=== PATIENT | female | born 1970 ===

== ENCOUNTER 2016-09-25 22:29 | Emergency (ER) | payer BC, OTHER ==
[~2016-09-25] VITALS: Ht 162.6 cm; Wt 87.3 kg
[2016-09-25 22:29] VITALS: Ht 162.6 cm; Wt 87.3 kg
[~2016-09-25 22:29] MED LIST: ALBU18HF2 ORAL INH; AMPH30TA3 PO
--- OUTSIDE RECORDS SUMMARY | 2016-09-25 22:33 | XMS REPORT | Referral Summary ---
Author Author [facility], Family Medicine Organization [facility] Address Unknown Phone Unavailable Care Team Providers Care It Analyst Name Role Phone Haja Baez Primary Care Physician [phone] Encounter VC Date(s): 02/22/15 - 02/22/15 [facility] [place], Family [address] [place], [place] [address] Discharge Diagnosis: Fatigue Discharge Diagnosis: Adult ADHD Discharge Diagnosis: Mild intermittent asthma, uncomplicated Discharge Diagnosis: Tobacco user Discharge Diagnosis: Obstructive sleep apnea Discharge Disposition: 01-Home or Self Care Attending Physician: Antonino Baez MD Admitting Physician: Antonino Baez MD Vital Signs Most recent to 1 oldest [Reference Range]: Temperature Tympanic 35.6 degC [36.6-38.1 degC] *LOW* (02/22/15 9:27 AM) Peripheral Pulse 64 bpm Rate [60-100 bpm] (02/22/15 9:27 AM) Blood Pressure 132/82 mmHg [90-140/60-90 mmHg] (02/22/15 9:27 AM) Problem List Condition Effective Dates Status Health Status Informant Obesity(Confirmed) Active patient Tobacco Active patient user(Confirmed) Allergies, Adverse Reactions, Alerts Substance Reaction Severity Status amoxicillin Active ibuprofen Active Nuts Active Medications Adderall 10 mg oral tablet See Instructions, take 1 & 1/2 tab BID, 1-1/2 tabs Oral BID, # 90 tabs, 0 Refill (s) Start Date: 02/22/15 Status: Ordered B 100 Complex oral tablet 1 tabs, Oral, Daily, # 100 tabs, 0 Refill(s) Start Date: 01/18/15 Status: Ordered echinacea 0 Refill(s) Start Date: 01/18/15 Status: Ordered EPINEPHrine 0.3 mg injectable kit See Instructions, IntraMuscular Once, # 1 Each, 0 Refill(s), Pharmacy: [facility] #[id number], IntraMuscular Once Start Date: 01/18/15 Stop Date: 01/19/16 Status: Ordered Fish Oil Oral, 0 Refill(s) Start Date: 01/18/15 Status: Ordered Melatonin 3 mg oral tablet 3 mg 1 tabs, Oral, Bedtime (once a day), as needed for insomnia, # 60 tabs, 0 Refill(s) Start Date: 01/18/15 Status: Ordered multivitamin Daily, 0 Refill(s) Start Date: 01/18/15 Status: Ordered Mohan's wort 0 Refill(s) Start Date: 01/18/15 Status: Ordered Ventolin HFA 90 mcg/inh inhalation aerosol 180 mcg 2 puffs, Inhalation, QID, as needed for wheezing, # 1 Each, 0 Refill(s) , Pharmacy: [facility] #[id number], 2 puffs Inhalation QID,PRN:as needed for wheezing Start Date: 01/18/15 Status: Ordered Results Hematology Most recent to 1 oldest [Reference Range]: WBC [4.8-10.8 8.0 10*3/uL 10*3/uL] (02/22/15 10:35 AM) RBC [4.00-5.20] 4.33 (02/22/15 10:35 AM) Hgb [12.0-16.0 13.1 gm/dL gm/dL] (02/22/15 10:35 AM) Hct [37.0-47.0 %] 39.0 % (02/22/15 10:35 AM) MCV [82.0-99.0 fL] 90.1 fL (02/22/15 10:35 AM) MCH [27.0-32.0 pg] 30.3 pg (02/22/15 10:35 AM) MCHC [32.0-36.0 33.6 gm/dL gm/dL] (02/22/15 10:35 AM) RDW [11.5-14.5 %] 13.1 % (02/22/15 10:35 AM) Platelet [150-400 253 10*3/uL 10*3/uL] (02/22/15 10:35 AM) MPV [8.8-14.8 fL] 12.4 fL (02/22/15 10:35 AM) Immature 0.3 % Granulocytes (02/22/15 10:35 AM) [0.0-1.0 %] Neutrophils [51-75 63 % %] (02/22/15 10:35 AM) Lymphocytes [20-46 26 % %] (02/22/15 10:35 AM) Monocytes [4-11 %] 7 % (02/22/15 10:35 AM) Eosinophils [0-4 %] 3 % (02/22/15 10:35 AM) Basophils [0-2 %] 1 % (02/22/15 10:35 AM) Neutro Absolute 4.98 10*3 [1.90-7.00 10*3] (02/22/15 10:35 AM) Lymph Absolute 2.10 10*3 [0.80-3.30 10*3] (02/22/15 10:35 AM) Hubbard Absolute 0.55 10*3 [0.30-1.00 10*3] (02/22/15 10:35 AM) Eos Absolute 0.26 10*3 [0.00-0.50 10*3] (02/22/15 10:35 AM) Baso Absolute 0.04 10*3 [0.00-0.20 10*3] (02/22/15 10:35 AM) Chemistry Most recent to 1 oldest [Reference Range]: TSH with Reflex Free 1.03 T4 [0.35-4.94] (02/22/15 10:35 AM) Immunizations No data available for this section Procedures Procedure Date Related Diagnosis Body Site Collection of venous blood by venipuncture 02/22/15 Hysterectomy1 Miscellaneous2 1Still has both ovaries. 2Foot surg x2. Social History Social History Type Response Smoking Status Current every day smoker; Type: Cigarettes; Tobacco use per day: Pack; Number of years: 12 Assessment and Plan Extracted from: Title: Office Visit Note Author: Antonino Baez MD Date: 02/22/15 Assessment/Plan Adult ADHD Fatigue Mild intermittent asthma, uncomplicated Obstructive sleep apnea Tobacco user Orders: dextroamphetamine-amphetamine, See Instructions, take 1 & 1/2 tab BID , 1-1/2 tabs Oral BID, # 90 tabs, 0 Refill(s) We discussed asthma management. I recommended pulmonary function tests but she wants to defer that for now. We discussed smoking cessation and she plans to try to completely quit. I proved a one-month supply of Adderall. We will try once again to arrange consultation with sleep medicine and with psychiatry. We also tried once again to request old records. I'll up again in one more month. His evaluation of her fatigue include TSH and CBC and testing.
--- OUTSIDE RECORDS SUMMARY | 2016-09-25 22:33 | XMS REPORT | Referral Summary ---
Author Author [facility], Family [facility] Organization [facility] Address Unknown Phone Unavailable Care Team Providers Care Piano Mechanic Name Role Phone OlimpiamollyLouie Primary Care Physician [phone] Encounter Date(s): 01/18/15 - 01/18/15 [facility] [address] [place] [address]- Discharge Diagnosis: Adult ADHD Discharge Diagnosis: Allergic rhinitis Discharge Diagnosis: Tobacco user Discharge Diagnosis: Nut allergy Discharge Diagnosis: Sleep apnea Discharge Diagnosis: Asthma Discharge Disposition: 01-Home or Self Care Attending Physician: Antonino Baez MD Admitting Physician: Antonino Baez MD Vital Signs Most recent to 1 oldest [Reference Range]: Temperature Tympanic 36.7 degC [36.6-38.1 degC] (01/18/15 10:58 AM) Peripheral Pulse 60 bpm Rate [60-100 bpm] (01/18/15 10:58 AM) Blood Pressure 119/78 mmHg [90-140/60-90 mmHg] (01/18/15 10:58 AM) Problem List Condition Effective Dates Status Health Status Informant Adult Active ADHD(Confirmed) Depression(Confirmed Active ) Endometriosis(Confir Active med) S/p Active hysterectomy(Confirm ed) Herpes genitalis in Active women(Confirmed) Obesity(Confirmed) Active patient Apnea, Active sleep(Confirmed) Tobacco Active patient user(Confirmed) Allergies, Adverse Reactions, [...] Once, # 1 Each, 0 Refill(s), Pharmacy: [facility] #[id number], IntraMuscular Once Start Date: 01/18/15 Stop Date: [...] # 1 Each, 0 Refill(s) , Pharmacy: [facility] #[id number], 2 puffs Inhalation QID,PRN:as needed for wheezing Start Date: 01/18/15 Status: Ordered Results No data available for this section Immunizations No data available for this section Procedures Procedure Date Related Diagnosis Body Site Hysterectomy1 Miscellaneous2 1Still has both ovaries. 2Foot surg x2. Social History Social History Type Response Smoking Status Current every day smoker; Type: Cigarettes; Tobacco use per day: Pack; Number of years: 12 Assessment and Plan Extracted from: Title: Office Visit Note Author: Antonino Baez MD Date: 01/18/15 Assessment/Plan Adult ADHD Allergic rhinitis Asthma Nut allergy Sleep apnea Tobacco user Orders: albuterol, 180 mcg 2 puffs, Inhalation, QID, as needed for wheezing, # 1 Each, 0 Refill(s), Pharmacy: [facility] #[id number], 2 puffs Inhalation QID,PRN:as needed for wheezing EPINEPHrine, See Instructions, IntraMuscular Once, # 1 Each, 0 Refill(s), Pharmacy: [facility] #[id number], IntraMuscular Once Old records requested. I'm not ready to prescribe Adderall until I have a chance to review those. Alternatively I offered consultation at [facility] for evaluation of a told ADHD and that was what she preferred. She also needs a consultation with sleep medicine. I did suggest nasal steroid spray such as Flonase or Nasacort combined with antihistamine for her nasal allergy symptoms. Refills provided for her EpiPen and albuterol inhaler. Follow-up one month or sooner if needed.
--- OUTSIDE RECORDS SUMMARY | 2016-09-25 22:33 | XMS REPORT | Referral Summary ---
Author Author [facility], Family Medicine Organization [facility] Address Unknown Phone Unavailable Care Team Providers Care Senior Ios Software Engineer Name Role Phone Louie Parks Primary Care Physician [phone] Encounter VC Date(s): 07/05/15 - 07/05/15 [facility] [place], Family [address] [place] [address]- Discharge Disposition: 01-Home or Self Care Attending Physician: Edison Parks MD Admitting Physician: Edison Parks MD Vital Signs Most recent to 1 oldest [Reference Range]: Blood Pressure 130/90 mmHg [90-140/60-90 mmHg] (07/05/15 10:29 AM) Problem List Condition Effective Dates Status [...] Once, # 1 Each, 0 Refill(s), Pharmacy: [facility] #[id number], IntraMuscular Once Start Date: 01/18/15 Stop Date: [...] # 1 Each, 0 Refill(s) , Pharmacy: [facility] #[id number], 2 puffs Inhalation QID,PRN:as needed for wheezing [...] 12 Assessment and Plan Extracted from: Title: Ambulatory Patient Education Author: Edison Parks MD Date: Family Medicine Depression Depression refers to feeling sad, low, down in the dumps, blue, gloomy, or empty. In general, there are two kinds of depression: 1.Normal sadness or normal grief. This kind of depression is one that we all feel from time to time after upsetting life experiences, such as the loss of a job or the ending of a relationship. This kind of depression is considered normal, is short lived, and resolves within a few days to 2 weeks. Depression experienced after the loss of a loved one (bereavement) often lasts longer than 2 weeks but normally gets better with time. 2.Clinical depression. This kind of depression lasts longer than normal sadness or normal grief or interferes with your ability to function at home, at work, and in school. It also interferes with your personal relationships. It affects almost every aspect of your life. Clinical depression is an illness. Symptoms of depression can also be caused by conditions other than those mentioned above, such as: Physical illness. Some physical illnesses, including underactive thyroid gland (hypothyroidism), severe anemia, specific types of cancer, diabetes, uncontrolled seizures, heart and lung problems, strokes, and chronic pain are commonly associated with symptoms of depression. Side effects of some prescription medicine. In some people, certain types of medicine can cause symptoms of depression. Substance abuse. Abuse of alcohol and illicit drugs can cause symptoms of depression. SYMPTOMS Symptoms of normal sadness and normal grief include the following: Feeling sad or crying for short periods of time. Not caring about anything (apathy). Difficulty sleeping or sleeping too much. No longer able to enjoy the things you used to enjoy. Desire to be by oneself all the time (social isolation). Lack of energy or motivation. Difficulty concentrating or remembering. Change in appetite or weight. Restlessness or agitation. Symptoms of clinical depression include the same symptoms of normal sadness or normal grief and also the following symptoms: Feeling sad or crying all the time. Feelings of guilt or worthlessness. Feelings of hopelessness or helplessness. Thoughts of suicide or the desire to harm yourself (suicidal ideation). Loss of touch with reality (psychotic symptoms). Seeing or hearing things that are not real (hallucinations) or having false beliefs about your life or the people around you (delusions and paranoia). DIAGNOSIS The diagnosis of clinical depression is usually based on how bad the symptoms are and how long they have lasted. Your health care provider will also ask you questions about your medical history and substance use to find out if physical illness, use of prescription medicine, or substance abuse is causing your depression. Your health care provider may also order blood tests. TREATMENT Often, normal sadness and normal grief do not require treatment. However, sometimes antidepressant medicine is given for bereavement to ease the depressive symptoms until they resolve. The treatment for clinical depression depends on how bad the symptoms are but often includes antidepressant medicine, counseling with a mental health professional, or both. Your health care provider will help to determine what treatment is best for you. Depression caused by physical illness usually goes away with appropriate medical treatment of the illness. If prescription medicine is causing depression , talk with your health care provider about stopping the medicine, decreasing the dose, or changing to another medicine. Depression caused by the abuse of alcohol or illicit drugs goes away when you stop using these substances. Some adults need professional help in order to stop drinking or using drugs. SEEK IMMEDIATE MEDICAL CARE IF: You have thoughts about hurting yourself or others. You lose touch with reality (have psychotic symptoms). You are taking medicine for depression and have a serious side effect. FOR MORE INFORMATION National [place] on Mental Illness: www.jose.org National [place] of Mental Health: www.nimh.nih.gov This information is not intended to replace advice given to you by your health care provider. Make sure you discuss any questions you have with your health care provider. Document Released: 04/24/2001 Document Revised: 09/11/2014 Document Reviewed: ExitCare Patient Information 2015 [place] [employer] [facility]. No follow up information was provided. Extracted from: Title: Office Visit Note Author: Edison Parks MD Date: 07/05/15 Assessment/Plan Adult ADHD Seeing PV. [facility] notes from 05/2015 reviewed.ADHD meds are being given byPV. Apnea, sleep referral given for consult to Sleep Medicine. Depression This issue was reviewed, appears stable, and current therapy continued except as mentioned. Appropriate lab was reviewed from the most recent appropriate entry and lab was ordered if needed in the cpoe/nursing orders, and follow up recommended generally in 90 days and no later then six months. She stopped her meds andis NOT taking them from [facility] at this time. No SIs. Endometriosis The patient's issue is nearly or completely resolved. There is no further issues or testing desired by them at this time. Herpes genitalis in women WWE with [facility] when interested. No outbreaks but may have famvir if needed. Obesity Diet and exercise as tolerated and feasible. Consider medication when interested. Consider meds when interested. S/p hysterectomy The patient's issue is nearly or completely resolved. There is no further issues or testing desired by them at this time. Tobacco user Smoking Cessation was discussed. The patient is welcome to f/u for therapy or medication for smoking cessation at any time that they are willing to quit. A work/school note was offered and deferred by the patient.
--- OUTSIDE RECORDS SUMMARY | 2016-09-25 22:33 | XMS REPORT | Referral Summary ---
Author Author [facility], Family Medicine Organization [facility] Address Unknown Phone Unavailable Care Team Providers Care Senior Radiation Therapist Name Role Phone Louie Parks Primary Care Physician [phone] Encounter VC Date(s): 02/22/15 - 02/22/15 [facility] [address] [place] [address]- Discharge Diagnosis: Fatigue Discharge Diagnosis: Adult ADHD [...] Once, # 1 Each, 0 Refill(s), Pharmacy: [facility] #[id number], IntraMuscular Once Start Date: 01/18/15 Stop Date: [...] # 1 Each, 0 Refill(s) , Pharmacy: [facility] #[id number], 2 puffs Inhalation QID,PRN:as needed for wheezing [...] 2.10 10*3 [0.80-3.30 10*3] (02/22/15 10:35 AM) [place] Absolute 0.55 10*3 [0.30-1.00 10*3] (02/22/15 10:35 [...] Collection of venous blood by venipuncture 02/22/15 Collection of venous blood by venipuncture 02/22/15 Collection of venous blood by venipuncture 02/22/15 [...]
--- OUTSIDE RECORDS SUMMARY | 2016-09-25 22:33 | XMS REPORT | Referral Summary ---
Author Author [facility] [place] [facility] [place] Address Unknown Phone Unavailable Care Team Providers Care Credit Manager Name Role Phone Louie Parks Primary Care Physician [phone] Encounter Date(s): 09/04/15 - 09/04/15 [facility] Neumann, Sleep [facility] [address], [place] [address] Discharge Diagnosis: JO on CPAP Discharge Disposition: 01-Home or Self Care Attending Physician: Jarvis Matthews MD Admitting Physician: Jarvis Matthews MD Referring Physician: Edison Parks MD Vital Signs Most recent to 1 oldest [Reference Range]: Peripheral Pulse 70 bpm Rate [60-100 bpm] (09/04/15 8:14 AM) Blood Pressure 122/80 mmHg [90-140/60-90 mmHg] (09/04/15 8:14 AM) SpO2 98 % (09/04/15 8:14 AM) Problem List Condition Effective Dates Status [...] Once, # 1 Each, 0 Refill(s), [facility] #[id number], IntraMuscular Once Start Date: 01/18/15 Stop Date: [...] # 1 Each, 0 Refill(s) , [facility] #[id number], 2 puffs Inhalation QID,PRN:as needed for wheezing [...] Extracted from: Title: Office Visit Note Author: Jarvis Matthews MD Date: 09/04/15 Assessment/Plan 1.JO on CPAP This pleasant 45-year-old female has an unknown degree of obstructive sleep apnea. He can be surmise that is severe as she met acriteria for split protocol PSG in 2014. Formal results are not known and a record will try and be tracked down. Time, I will on her request increase her CPAP pressure to 10 cm pressure and provide her with a refill on her related supplies. She is encouraged to continue her weight loss measures as well as continue efforts for positional therapy. There does appear to be some difference betweenrecliner sleep and sleep in bed while on CPAP. She is also encouraged to use herwith all sleep to improve her compliance even more than 80 percent for plus hour usage she is currently averaging. A follow-up in 4-6 weeks to check on her symptoms after the pressure increase isrecommendedunless interval issues arise. Use of CPAP/BiPAP is encouraged for all sleep. The patient is encouraged to replace CPAP supplies regularly and keep a sanitary system. The patient and any accompanying family expressed understanding and agreement with this plan after having had adequate time to ask and have questions answered.
--- OUTSIDE RECORDS SUMMARY | 2016-09-25 22:33 | XMS REPORT | Referral Summary ---
Author Author [facility] Neumann, [facility], [facility] [place] Organization Via Hortens[facility]LIO Godinez, [facility] [place], [facility] Address Unknown Phone Unavailable Care Team Providers Care Jewelry Casting Model Maker Apprentice Name Role Phone Louie Parks Primary Care Physician [phone] Encounter Date(s): 06/02/16 - 06/02/16 [facility] Neumann, [facility] [place], [facility] [address] [place], [place] [address] Discharge Diagnosis: JO on CPAP Discharge Disposition: 01-Home or Self Care Attending Physician: Anitha Lomeli Admitting Physician: Anitha Lomeli Vital Signs Most recent to 1 oldest [Reference Range]: Peripheral Pulse 62 bpm Rate [60-100 bpm] (06/02/16 4:04 PM) Blood Pressure 144/90 mmHg [90-140/60-90 mmHg] *HI* (06/02/16 4:04 PM) SpO2 98 % (06/02/16 4:04 PM) Problem List Condition Effective Dates Status Health Status Informant Adult Active ADHD(Confirmed) Chronic hand Active pain(Confirmed) Depression(Confirmed Active ) Elevated Active BP(Confirmed) Endometriosis(Confir Active med) S/p Active hysterectomy(Confirm ed) Herpes genitalis in Active women(Confirmed) Obesity(Confirmed) Active patient JO on Active CPAP(Confirmed) Apnea, Active sleep(Confirmed) Tobacco Active patient user(Confirmed) [...] 0 Refill(s) Start Date: 01/18/15 Status: Ordered Fish Oil Oral, 0 Refill(s) [...] 1 Each, 0 Refill(s) , Pharmacy: [facility] #[id number], 2 puffs Inhalation QID,PRN:as needed for wheezing [...] Extracted from: Title: Office Visit Note Author: Anitha Lomeli PA-C Date: 06/02/16 Assessment/Plan 1.JO on CPAP -Adequate treatment with CPAP objectively. Symptomatically she does have tiredness, but has recently had a change in job title and physical demand is increased as a result. Her average usage time is low, however she does not believe the machine is recording accurately as she wears it regularly. Will send an order to [facility] in [place] to repair/replace her CPAP at 10cm as it does not seem to be recording accurately. Continue CPAP with all sleep at 10cm. -CPAP download reviewed with the patient and patient is complying with and benefitting from treatment. -Avoid driving, partaking in hazardous activities, or operating heavy machinery if drowsy. -Continue appropriate cleaning of the machine/humidifier and update of all supplies including mask, tubing, and filters. -Return for follow-up in 4 months for re-evaluation after machine repaired. Return/call sooner if any problems arise in the meantime. Addendum by She was also asked to keep sleep diaries. Anitha Lomeli PA-C on June 02, 2016 16:26:22 PHP LAMP DEVELOPER
[2016-09-25] MEDS ORDERED: ONDANSETRON 4mg/2ml INJECTION IV ONE (22:45)
[2016-09-25] MEDS ORDERED: MORPHINE SULFATE 4 MG SYRINGE IV ONE (22:45)
--- NOTE | 2016-09-25 22:48 | ERPDOC ---
Departure Disposition Decision Date: September 25, 2016 Disposition Decision Time: 23:19 (BRYCE CASAREZ APRN) Disposition: 01 DISCHARGED HOME, SELF-CARE Impression Impression (BRYCE CASAREZ APRN) Impression: Primary Impression: RUQ abdominal pain Severity: Moderate (BRYCE CASAREZ APRN) Condition: Stable Seen By: Mid-level only (BRYCE CASAREZ APRN) Referrals: LUZMA PALACIOS MD (Family) Patient Instructions: Abdominal Pain (ED) Problems/Meds/Labs Reviewed?: Yes Medications reviewed and manag: Yes (BRYCE CASAREZ APRN) Additional Instructions: Take the [place] as needed for pain. May use the Zofran as needed for nausea. Eat a bland diet, avoid fatty or spicy foods. I do want you to follow up next week with Dr Palacios as scheduled, contact his office tomorrow to see if they can get you in for evaluation sooner. Return to ER over the weekend with any fever, vomiting, or severe pain. Follow up care ordered?: Yes Mental Status: Alert (BRYCE CASAREZ APRN) Scripts Ondansetron (Zofran Odt) 4 Mg Tab.rapdis 4 MG PO Q8HR Y for NAUSEA, #7 TAB 0 Refills Orally disintegrating tablet Prov: BRYCE CASAREZ APRN 09/25/16 Hydrocodone/Acetaminophen ([place] 5-325 Tablet) 5-325 Tablet 1 TAB PO Q6H Y for PAIN, #15 TAB 0 Refills Prov: BRYCE CASAREZ APRN 09/25/16 HPI - Abdominal Pain General Chief Complaint: Abdominal Pain Stated Complaint: ABD PAIN Time Seen by Provider: 22:32 Source: patient History/Exam Limitations: no limitations (BRYCE CASAREZ APRN) Time Seen by Provider: 22:32 (JAGJIT CONNER MD) HPI - Abdominal Pain Initial Comments For the last few weeks she has had some pain in the RUQ. She did call and make an appointment with her PCP for next week but the pain has gotten steadily worse this week. Tonight she really started not feeling well. Has not had pain like this in the past. Has had some nausea but no vomiting. Denies any fever or chills. Has had some diarrhea. Has taken OTC medications without relief. Nothing seems to make it better or worse. Occurred At: home Onset: Gradual Duration: other (Over the last few weeks, worse today) Quality: sharpness Location: RUQ Radiation: no radiation Activities at Onset: none Associated Symptoms: nausea/vomiting (nausea no vomiting), DENIES: back pain, chest pain, diaphoresis, fatigue, fever/chills, headache, heartburn, rash, shortness of breath, swelling/mass in abdomen, syncope, weakness Hx of Similar Symptoms: No (NOLD,BRYCE N REVIEW NURSE) Allergies: Coded Allergies: amoxicillin (Verified Allergy, Unknown, 08/04/15) clavulanic acid (Verified Allergy, Unknown, 08/04/15) ibuprofen (Verified Allergy, Unknown, 08/04/15) Past History Past Medical History Respiratory: asthma Musculoskeletal: osteoarthritis Psychological: ADHD (NOLD,BRYCE N REVIEW NURSE) Surgical History Reproductive/: hysterectomy Joint: foot (NOLD,BRYCE N REVIEW NURSE) Family History Family PMH: FOUND: other (NOLD,BRYCE N REVIEW NURSE) Social History Smoking Status: Never smoker Substance Use Type: does not use Alcohol Intake: none (NOLD,BRYCE N REVIEW NURSE) Review of Systems Constitutional Constitutional: DENIES: chills, dizziness, fatigue, fever, weakness (NOLD, BRYCE N REVIEW NURSE) Cardiovascular Cardiac: DENIES: chest pain, orthopnea Rhythm/Rate: DENIES: irregular beat, palpitations (NOLD,BRYCE N REVIEW NURSE) Pulmonary Respiratory: DENIES: cough, dyspnea, sputum, tachypnea (NOLD,BRYCE N REVIEW NURSE) GI Upper Abdomen: nausea, pain (RUQ), DENIES: vomiting Lower Abdomen: DENIES: constipation, diarrhea, pain (NOLD,BRYCE N REVIEW NURSE) Integumentary Skin: DENIES: rash (NOLD,BRYCE N REVIEW NURSE) Neurological General: DENIES: headache, numbness, tingling, weakness (NOLD,BRYCE N REVIEW NURSE) Physical Exam General General Nourishment: well nourished, well developed, appears stated age, no acute distress, adult General Body Habitus: well groomed (NOLD,BRYCE N REVIEW NURSE) Vitals and Pain First Documented Vital Signs Date Time Temp Pulse Resp B/P Pulse Ox O2 Delivery O2 Flow Rate FiO2 09/25/16 22:29 98.2 74 18 140/87 97 Room Air (JAGJIT CONNER MD) Vitals and Pain Weight: Kilograms: Height (feet): 5 Height (inches): 4 Triage Pain Scale: (BRYCE CASAREZ APRN) RN VS reviewed by Provider: Yes (BRYCE CASAREZ APRN) Normal Exams: Neck: Full range of motion, without adenopathy, JVD, bruits or thyromegaly Chest/Resp: Clear all smith, with good airflow, and symmetry bilaterally CV: Regular rate and rhythm, without murmur or gallop, Pulses 2+ all extremities, capillary refill, <2 seconds all ext., no pedal edema noted Abdomen: Bowel sounds positive, non-distended, no hepatosplenomegaly, masses or bruits noted Integumentary: No rashes, hives, or bruising noted Neurologic: Patient is alert, and oriented Psychiatric: Patient exhibits, appropriate attention, emotion and affect (BRYCE CASAREZ APRN) Abdomen Inspection: NOT FOUND: distention Palpation: FOUND: soft, tender (Moderate TTP in the epigastric region and the RUQ but without guarding or rebound tenderness. ), NOT FOUND: involuntary guarding, rebound, voluntary guarding Auscultation: FOUND: normoactive (BRYCE CASAREZ APRN) Differential Diagnoses Considering: Appendicitis, Biliary Colic, Bowel Obstruction, Cholecystitis, Constipation, GERD, IBS (BRYCE CASAREZ APRN) Progress Results/Orders Orders Procedure Category Date Status Time Cbc W/Auto LAB 09/25/16 Complete Diff-Reflex Manual Cmp - Comprehensive LAB 09/25/16 Complete Metabolic Lipase LAB 09/25/16 Complete Morphine Sulfate PHA 09/25/16 Complete (Morphine) 22:45 Ondansetron Inj PHA 09/25/16 Complete (Zofran) 22:45 Hydrocodone/Apap PHA 09/25/16 In Process 5/ Prepack ([place] 5 23:30 Ondansetron Odt PHA 09/25/16 In Process (Prepack) (Zofran Odt 23:30 (JAGJIT CONNER MD) Lab Results Laboratory Tests Test 09/25/16 22:53 White Blood Count 7.6T/MM3 Red Blood Count 4.09M/MM3 Hemoglobin 12.6GM/DL Hematocrit 36.8% Mean Corpuscular Volume 90.0UM3 Mean Corpuscular Hemoglobin 30.8UUG Mean Corpuscular Hemoglobin Concent 34.2GM/DL RDW Standard Deviation 39.6FL Platelet Count 249T/MM3 Mean Platelet Volume 11.9UM3 Immature Granulocyte % (Auto) 0.3% Neutrophils (%) (Auto) 51.4% Lymphocytes (%) (Auto) 36.4% Monocytes (%) (Auto) 5.5% Eosinophils (%) (Auto) 5.9% Basophils (%) (Auto) 0.5% Absolute Immature Granulocyte (auto 0.02T/MM3 Absolute Neutrophils (auto) 3.9T/MM3 Absolute Lymphocytes (auto) 2.8T/MM3 Absolute Monocytes (auto) 0.4T/MM3 Absolute Eosinophils (auto) 0.5T/MM3 Absolute Basophils (auto) 0.0T/MM3 Turbidity < 20 Sodium Level 145MEQ/L Potassium Level 3.6MEQ/L Chloride Level 108MEQ/L Carbon Dioxide Level 23MEQ/L Anion Gap 14MEQ/L Blood Urea Nitrogen 15.0MG/DL Creatinine 0.7MG/DL Glomerular Filtration Rate Calc 90 BUN/Creatinine Ratio 21RATIO Glucose Level 113MG/DL Calculated Osmolality 281MOSM/KG Calcium Level 9.0MG/DL Total Bilirubin 0.30MG/DL Icterus Index < 2 Aspartate Amino Transf (AST/SGOT) 20U/L Alanine Aminotransferase (ALT/SGPT) 37U/L Alkaline Phosphatase 74U/L Total Protein 7.7G/DL Albumin 4.4G/DL Globulin 3.3G/DL Albumin/Globulin Ratio 1.3RATIO Lipase 175U/L Chemistry Specimen Hemolysis < 15 (JAGJIT CONNER MD) Medications Current ED Medications Morphine Sulfate (Morphine) 4 mg O ONCE IV Last administered on 09/25/16 22: 58; Start 09/25/16 at 22:45; Stop 09/25/16 at 22:46; Status DC Ondansetron HCl (Zofran) 4 mg O ONCE IV Last administered on 09/25/16 22:56; Start 09/25/16 at 22:45; Stop 09/25/16 at 22:46; Status DC Acetaminophen/ Hydrocodone Bitart (NORCO 5 (PrePack)) 1 pack O ONCE SENT HOME ; Start 09/25/16 at 23:30; Stop 09/25/16 at 23:31 Ondansetron HCl (ZOFRAN ODT (PrePack)) 1 pack O ONCE SENT HOME ; Start at 23:30; Stop 09/25/16 at 23:31 (JAGJIT CONNRE MD) Progress Progress CBC is normal CMP and lipase are normal Her pain is improved after Morphine and Zofran. Did talk with her that this is likely her gallbladder given her pain pattern and symptoms. Will go ahead and send her home as her labs are normal and pain controlled. Will have her take some [place] as needed for pain and Zofran for nausea. Follow up with Dr Palacios as scheduled next week. Strict return precautions are given. (BRYCE CASAREZ APRN) BRYCE CASAREZ APRN September 25, 2016 22:48 JAGJIT CONNER MD September 25, 2016 23:26
[2016-09-25 22:59] LABS: BASOPHILS % (AUTO) 0.5 % (0-2); EOSINOPHILS # (AUTO) 0.5 T/MM3 (0-0.5); EOSINOPHILS % (AUTO) 5.9 % (0-4); HCT - HEMATOCRIT 36.8 % (36-46); HGB - HEMOGLOBIN 12.6 GM/DL (12-16); IMMATURE GRANULOCYTE # (AUTO) 0.02 T/MM3 (0.00-0.03); IMMATURE GRANULOCYTE % (AUTO) 0.3 % (0.0-0.5); LYMPHOCYTES # (AUTO) 2.8 T/MM3 (1-4.8); LYMPHOCYTES % (AUTO) 36.4 % (23-45); MEAN CORPUSCULAR HGB 30.8 UUG (26-34); MEAN CORPUSCULAR HGB CONC(MCHC 34.2 GM/DL (31-37); MEAN PLATELET VOLUME 11.9 UM3 (9.4-12.4); MONOCYTES # (AUTO) 0.4 T/MM3 (0-0.8); MONOCYTES % (AUTO) 5.5 % (0-9.0); NEUTROPHILS #(AUTO)-ABSOLUTE 3.9 T/MM3 (1.8-7.7); NEUTROPHILS % (AUTO) 51.4 % (33-66); RED BLOOD COUNT 4.09 M/MM3 (4.00-5.20); WBC - WHITE BLOOD COUNT 7.6 T/MM3 (4.5-11.0)
[2016-09-25 23:08] LABS: ALBUMIN 4.4 G/DL (3.5-5.0); ALBUMIN/GLOBULIN RATIO 1.3 RATIO (1.1-2.2); ALKALINE PHOSPHATASE 74 U/L (38-126); ALT (SGPT) 37 U/L (9-52); ANION GAP 14 MEQ/L (5-15); AST (SGOT) 20 U/L (14-36); BUN/CREATININE RATIO 21 RATIO (6-26); CHLORIDE 108 MEQ/L (98-107); CO2 - CARBON DIOXIDE 23 MEQ/L (22-30); CREATININE 0.7 MG/DL (0.7-1.2); GLOMERULAR FILTRATION RATE 90; GLUCOSE 113 MG/DL (65-110); LIPASE 175 U/L (23-300); POTASSIUM 3.6 MEQ/L (3.6-5); SODIUM 145 MEQ/L (134-144); TOTAL PROTEIN 7.7 G/DL (6.3-8.2)
[2016-09-25] MEDS ORDERED: ONDA4TAB7 PO (23:21)
[2016-09-25] MEDS ORDERED: HYDR-4246 PO (23:21)
[2016-09-25] MEDS ORDERED: HYDROCODONE/APAP 5/325 (PrePack) SENT HOME ONE (23:30)
[2016-09-25] MEDS ORDERED: ONDANSETRON ODT 4mg #3 (PrePack) SENT HOME ONE (23:30)
[2016-09-25 23:45] VITALS: BP 144/85; PULSE 58; RESP 18; TEMP 98.3; O2SAT 97
--- NOTE | 2016-09-25 23:45 | NUR ---
DEPART PT REPORTS PAIN LEVEL 2/10. PT REPORTS FEELING MUCH BETTER. PT IS GIVEN DISMISSAL INSTRUCTIONS WITH VERBAL UNDERSTANDING. PTIS GIVEN PREPACK X2, SCRIPTS X2. PT UNDERSTANDING SHE NEEDS TO KEEP APPT ON THURSDAY. PT LEAVES [facility] TO ER REGISTRATION DESK WITH MOTHER
== END 2016-09-25 23:45 | disposition home or self-care (01) ==
LOC: ED 22:29
DX: R10.11 Right upper quadrant pain (principal); R10.13 Epigastric pain; R11.0 Nausea; R19.7 Diarrhea, unspecified
CPT/HCPCS: 80053; 83690; 85025; 96374; 96375; 99284; J2405